=== PATIENT | female | born 1995 | race Caucasian/White ===

== ENCOUNTER 2016-09-27 15:15 | Emergency (ER) | payer MEDICAID ==
[2016-05-06 06:25] VITALS: BMI 22.2
[~2016-09-27 15:15] MED LIST: CEFTIN250 MG PO; HYDROCODON-ACE1 EAC7 PO; INDERAL10 MG PO; OMEPRAZOLE20 M1 PO; ORTHO TRI-7 DAYSX 3 PO; PHENERGAN25 M1 PO; SEROQUEL25 MG PO; SEROQUEL50 MG PO; VALIUM5 MG PO; ZANTAC150 MG PO
[2016-09-27 15:58] LABS: BASOPHILS 0.1 % (0-2); EOSINOPHILS 0.2 % (0-7); HEMATOCRIT 38.1 % (36.0-48.0); HEMOGLOBIN 12.5 g/dL (12-16); IMMATURE GRANULOCYTES 0.3 % (0-5); LYMPHOCYTES 12.4 % (15-50); MCH 28.3 pg (26.0-34.0); MCHC 32.8 g/dL (31.0-37.0); MCV 86.4 fL (80.0-100.0); MEAN PLATELET VOLUME 10.2 fL (7.4-10.4); PLATELET COUNT 207 10x3/uL (130-400); RBC 4.41 10x6/uL (4.00-5.40); RDW 13.9 % (11.5-14.5); WBC 11.1 10x3/uL (4.8-10.8)
[2016-09-27 16:18] LABS: HCG SERUM NEGATIVE (NEGATIVE)
== END 2016-09-27 17:54 | disposition home or self-care (01) ==
LOC: D.ER 15:15
PROVIDERS: Family Medicine; Nurse Practitioner Acute Care
DX: S01.81XA Laceration without foreign body of other part of head, initial encounter (principal); V49.9XXA Car occupant (driver) (passenger) injured in unspecified traffic accident, initial encounter; Y93.89 Activity, other specified; Y92.410 Unspecified street and highway as the place of occurrence of the external cause; T14.8 Other injury of unspecified body region; F41.9 Anxiety disorder, unspecified; F31.9 Bipolar disorder, unspecified

== ENCOUNTER 2017-05-03 08:13 | Day surgery (SDC) | payer MEDICAID ==
[~2017-05-03] VITALS: Ht 175.3 cm; Wt 74.8 kg
[~2017-05-03 08:13] MED LIST changes: +ATIVAN0.5 MG PO; +DEPO-PROVER150 MG/ML IM; +SEROQUEL200 MG PO; -SEROQUEL50 MG PO
[2017-05-03] MEDS ORDERED: LAMICTAL25 MG PO (08:43)
[2017-05-03 08:45] VITALS: BP 107/71; Ht 175.3 cm; Wt 74.8 kg
[2017-05-03 09:14] LABS: HCG URINE NEGATIVE (NEGATIVE)
[2017-05-03 09:22] LABS: HEMATOCRIT 37.6 % (36.0-48.0); HEMOGLOBIN 12.2 g/dL (12-16); MCH 28.3 pg (26.0-34.0); MCHC 32.4 g/dL (31.0-37.0); MCV 87.2 fL (80.0-100.0); MEAN PLATELET VOLUME 10.2 fL (7.4-10.4); RBC 4.31 10x6/uL (4.00-5.40); RDW 14.4 % (11.5-14.5); WBC 5.4 10x3/uL (4.8-10.8)
--- NOTE | 2017-05-03 11:34 | NUR ---
THE PATIENT REPORTS SOME NON-DESCRIPITVE CHEST PAIN. SHE REPORTS THIS HAPPENS FROM TIME TO TIME. DR MCCORD ORDERED 12 LEAD IN RR
--- NOTE | 2017-05-03 11:45 | NUR ---
EKG APPROVED BY DR MCCORD AND ORDERED DISCHARGE FROM RR
--- NOTE | 2017-05-03 13:08 | NUR ---
1305 DISCHARGE INSTRUCTIONS COMPLETE. MOM HAS NO QUESTIONS OR CONCERNS AT THIS TIME. PRESCRIPTION FOR LORTAB GIVEN. PT ESCORTED OUT BY GILDARDO CROWLEY.
--- NOTE | 2017-05-03 13:13 | NUR ---
1315 DISCHARGE INSTRUCTIONS COMPLETE. PT HAS NO QUESTIONS OR CONCERNS AT THIS TIME. PT ESCORTED OUT BY GILDARDO CROWLEY.
--- NOTE | 2017-06-23 13:13 | OP ---
PATIENT NAME: DEUCE SIDDIQUI MEDICAL RECORD: [id number] :89 [facility] DATE: SURGEON: ARIANNA CUEVAS MD DATE OF OPERATION: 05/03/2017 PREOPERATIVE DIAGNOSIS: Chronic pharyngitis. POSTOPERATIVE DIAGNOSIS: Chronic pharyngitis. PROCEDURE: Tonsillectomy and adenoidectomy. SURGEON: Arianna Cuevas MD ANESTHESIA: General orotracheal. BLOOD LOSS: Less than 5 cc. SPECIMENS: Right and left tonsil. COMPLICATIONS: None. DISPOSITION: Recovery stable. PROCEDURE NOTE: She was brought to the operating room and placed in supine position, sedated and intubated by anesthesia. The eyes were taped. The table was turned 90 degrees. A head drape was applied and she was positioned for tonsillectomy. Using a headlight, a Devi-Anson mouth gag was carefully inserted and elevated on a towel on her chest. The palate was examined and palpated, it was normal. A silicone catheter was used to place through the right side of the nose into the pharynx and grasped with tonsil clamp to retract the soft palate. Using a mirror, the nasopharynx was examined. Suction cautery on a setting of 35 was used to ablate and suction the adenoid pad with no significant bleeding. The choanae and eustachian tube orifices were normal bilaterally. The catheter was let down and removed. The right tonsil was grasped at the superior pole with a straight Allis clamp. Spatula tip cautery on a setting of 9 was used to dissect out the tonsil along its capsule, preserving the anterior and posterior tonsillar pillars. The left tonsil was removed in the same fashion. Then, both sides of the nose were irrigated with saline. The pharynx was suctioned. Tonsillar fossae were agitated. Suction cautery on a setting of 20 was used to control minimal oozing. With the field clean and dry, she was awakened, extubated, and transported to recovery in good condition. No complications. TRANSINT:[id number] Voice Confirmation ID: [id number] DOCUMENT ID: [id number] ARIANNA CUEVAS MD at 1313 CC: [id number] DICTATION DATE: 05/03/17 1147 PUTTY GLAZER: 05/03/17 1249 [facility] [place] 05/03/17 [facility] [address] [id number]
--- NOTE | 2017-06-23 13:13 | HP ---
PATIENT: DEUCE SIDDIQUI MEDICAL RECORD: [id number] ACCOUNT: [id number] LOCATION:[facility] : 89 ADMISSION DATE: 05/03/17 HISTORY AND PHYSICAL EXAMINATION Preoperative History and Physical HISTORY OF PRESENT ILLNESS: Deuce is 21 years old. She has been having significant problems with chronic tonsillitis, being admitted for tonsillectomy and adenoidectomy. PAST MEDICAL HISTORY: Otherwise negative. PAST SURGICAL HISTORY: Cholecystectomy in 2016. CURRENT MEDICATIONS: Diazepam, lamotrigine, quetiapine. ALLERGIES: PENICILLIN. PHYSICAL EXAMINATION: GENERAL: She is healthy-appearing, developmentally normal. FACE: Normal, symmetric, no lesions. EYES: Sclerae and conjunctivae are normal. EARS: Canals and TMs are normal. NOSE: No mass, polyps or drainage. ORAL CAVITY AND OROPHARYNX: Chronically inflamed tonsils with crypts and tonsilliths. NECK: No masses, no adenopathy. CHEST: Clear. CARDIOVASCULAR: Regular rate and rhythm. No murmur. EXTREMITIES: Normal. IMPRESSION: Chronic pharyngitis. PLAN: Tonsillectomy and adenoidectomy. TRANSINT:[id number] Voice Confirmation ID: [id number] DOCUMENT ID: [id number] ARIANNA SILVA MD at 1313 CC: [id number] DICTATION DATE: 04/28/17 1055 CHOKER HOOKER: 04/28/17 1124 [facility] 05/03/[address] [id number]
== END 2017-05-03 13:14 | disposition home or self-care (01) ==
LOC: D.OPS 08:13 → D.PAN 08:45 → D.OPS 08:45
PROVIDERS: Anesthesiology; Otolaryngology
DX: J31.2 Chronic pharyngitis (principal); Z01.812 Encounter for preprocedural laboratory examination

== ENCOUNTER 2017-05-06 09:36 | Emergency (ER) | payer MEDICAID ==
[2017-05-03 08:45] VITALS: BMI 24.4
[~2017-05-06 09:36] MED LIST changes: +LAMICTAL25 MG PO
== END 2017-05-06 10:54 | disposition home or self-care (01) ==
LOC: D.ER 09:36
DX: G89.18 Other acute postprocedural pain (principal); R11.2 Nausea with vomiting, unspecified

== ENCOUNTER → 2017-10-13 12:28 | Outpatient (CLI) | payer MEDICAID ==
[2017-05-03 08:45] VITALS: BMI 24.4
== END | disposition home or self-care (01) ==
LOC: D.MRI 12:28
DX: G43.909 Migraine, unspecified, not intractable, without status migrainosus (principal)

== ENCOUNTER 2018-05-09 06:59 | Day surgery (SDC) | payer MEDICAID ==
[2018-05-06 13:49] LABS: BASOPHILS 0.3 % (0-2); EOSINOPHILS 0.9 % (0-7); HEMATOCRIT 39.8 % (36.0-48.0); HEMOGLOBIN 13.5 g/dL (12-16); IMMATURE GRANULOCYTES 0.3 % (0-5); MCH 29.6 pg (26.0-34.0); MCHC 33.9 g/dL (31.0-37.0); MCV 87.3 fL (80.0-100.0); MEAN PLATELET VOLUME 9.6 fL (7.4-10.4); MONOCYTES 9.6 % (2-11); NEUTROPHILS 67.9 % (40-80); RBC 4.56 10x6/uL (4.00-5.40); RDW 13.6 % (11.5-14.5); WBC 6.9 10x3/uL (4.8-10.8)
[2018-05-06 13:54] LABS: PLATELET COUNT 290 10x3/uL (130-400)
[~2018-05-09] VITALS: Ht 175.3 cm; Wt 86.2 kg
--- NOTE | ~2018-05-09 | OP ---
PATIENT NAME: DEUCE SIDDIQUI MEDICAL RECORD: [id number] :89 LOCATION:[facility] ADMISSION DATE: SURGEON: JOZEF KELLY MD DATE OF OPERATION: 05/09/2018 PREOPERATIVE DIAGNOSIS: Pelvic pain. POSTOPERATIVE DIAGNOSES: 1. Pelvic pain. 2. Suspect adenomyosis. PROCEDURE: Diagnostic laparoscopy. SURGEON: Jozef Kelly MD ANESTHESIOLOGIST: Dr. Oconnor ANESTHESIA: General. FINDINGS: Uterus is enlarged and boggy. Both tubes and ovaries are unremarkable. There appears to be a retraction in the peritoneum posterior to the left uterosacral ligament. This is inverted. No evidence of an endometriosis is seen. PATHOLOGY: None. SPECIMEN DISPOSITION: Not applicable. ESTIMATED BLOOD LOSS: Minimal. FLUIDS: One liter lactated Ringer's. URINE OUTPUT: Quantity sufficient void prior to this procedure. COMPLICATIONS: None. DRAINS: None. INDICATIONS: The patient is a 22-year-old female with pelvic pain that disrupts quality of life. The patient has not responded to conservative therapy and desires more aggressive management. Risks and benefits of this procedure have been discussed. DESCRIPTION OF PROCEDURE: After informed consent was assured, the patient was taken to the operating room where anesthetic was obtained without difficulty. The patient was now prepped and draped in the usual sterile fashion. The patient has a trocar inserted into the infraumbilical incision. The pneumoperitoneum was developed and accessory ports placed 2 fingerbreadths above the symphysis after placing the patient in Trendelenburg position. Through this accessory port trocar, a blunt probe was inserted and the bowel swept free of the pelvis. The uterus was elevated and both ovarian fossae, uterosacral ligaments, ovaries, and anterior vesicouterine pouch inspected. After this has been completed, [place] graspers were inserted and with the uterus elevated, the retraction found underneath the left uterosacral ligament was grasped at its base and inverted without evidence of endometriosis. At this point, the OPERATIVE REPORT [id number] DEUCE SIDDIQUI instruments were removed from the abdomen. The pneumoperitoneum was released. Both trocars were removed. The skin was reapproximated with subcuticular stitch and Dermabond was applied. Sponge, lap, needle counts were correct times 2. TRANSINT:[id number] Voice Confirmation ID: [id number] DOCUMENT ID: [id number] JOZEF KELLY MD at 1424 CC: [id number] DICTATION DATE: 05/09/18 1020 [employer]AD[employer] INSTRUCTOR: 05/09/18 [address] [place] [address]
[2018-05-09 07:50] VITALS: BP 109/69; Ht 175.3 cm; Wt 86.2 kg
[2018-05-09 08:08] LABS: HCG URINE NEGATIVE (NEGATIVE)
== END 2018-05-09 13:05 | disposition home or self-care (01) ==
LOC: D.OPS 06:59 → D.PAN 08:50 → D.OPS 09:00
PROVIDERS: Obstetrics & Gynecology
DX: N85.2 Hypertrophy of uterus (principal); N85.9 Noninflammatory disorder of uterus, unspecified; Z01.812 Encounter for preprocedural laboratory examination

== ENCOUNTER 2018-10-13 21:25 | Emergency (ER) | payer MEDICAID ==
[~2018-10-13] VITALS: Ht 175.3 cm; Wt 77.3 kg
[2018-10-13 21:27] VITALS: Ht 175.3 cm; Wt 77.3 kg
[2018-10-13 21:58] LABS: BASOPHILS 0.2 % (0-2); EOSINOPHILS 0.2 % (0-7); HEMATOCRIT 38.8 % (36.0-48.0); HEMOGLOBIN 13.4 g/dL (12-16); IMMATURE GRANULOCYTES 0.4 % (0-5); LYMPHOCYTES 16.4 % (15-50); MCH 29.3 pg (26.0-34.0); MCHC 34.5 g/dL (31.0-37.0); MCV 84.9 fL (80.0-100.0); MEAN PLATELET VOLUME 9.9 fL (7.4-10.4); MONOCYTES 7.4 % (2-11); NEUTROPHILS 75.4 % (40-80); PLATELET COUNT 285 10x3/uL (130-400); RBC 4.57 10x6/uL (4.00-5.40); RDW 14.1 % (11.5-14.5)
[2018-10-13 22:04] LABS: ALBUMIN 4.1 g/dL (3.4-5.0); ALKALINE PHOSPHATASE 77 U/L (46-116); ALT (SGPT) 15 U/L (10-68); BILIRUBIN - TOTAL 0.49 mg/dL (0.2-1.3); CALC OSMOLALITY 274 mosm/kg (275-300); CARBON DIOXIDE 23.4 mmol/L (21.0-32.0); CHLORIDE - SERUM 103 mmol/L (98-107); CREATININE - SERUM 0.7 mg/dL (0.6-1.3); GLUCOSE 104 mg/dL (74-106); POTASSIUM - SERUM 4.1 mmol/L (3.5-5.1); PROTEIN - SERUM 8.4 g/dL (6.4-8.2); SODIUM 138 mmol/L (136-145); UREA NITROGEN 9 mg/dL (7-18); eGFR NON AFRICAN AMERICAN > 90 mL/min (90-120)
[2018-10-13 22:10] LABS: APPEARANCE CLEAR (CLEAR); BILIRUBIN NEGATIVE (NEGATIVE); COLOR YELLOW (YELLOW); GLUCOSE NEGATIVE (NEGATIVE); KETONE NEGATIVE (NEGATIVE); NITRITE NEGATIVE (NEGATIVE); PROTEIN NEGATIVE (NEGATIVE); SPECIFIC GRAVITY 1.015 (1.005-1.020); UROBILINOGEN NORMAL (NORMAL)
[2018-10-13 22:12] LABS: BACTERIA FEW /hpf (NONE SEEN); EPITHELIAL CELLS OCC /hpf (0-5); RED CELLS - URINE 0-5 /hpf (0-5); WHITE CELLS - URINE 0-5 /hpf (0-5)
[2018-10-13 22:26] LABS: HCG - QUANTITATIVE (MATERNAL) 2835 mIU/mL
[2018-10-14 03:51] VITALS: BP 114/60
== END 2018-10-14 03:53 | disposition home or self-care (01) ==
LOC: D.ER 21:25
PROVIDERS: Emergency Medicine
DX: O03.4 Incomplete spontaneous abortion without complication (principal)